=== PATIENT | female | born 1995 | race Caucasian/White ===

== ENCOUNTER 2020-11-14 22:55 | Emergency (ER) | payer BC ==
--- NOTE | 2020-11-14 23:30 | EDM.PDOC ---
ED HPI GENERAL MEDICAL PROBLEM - General Stated Complaint: AND BLEEDING Time Seen by Provider: 11/14/20 23:26 Source of Information: Reports: Patient History Limitations: Reports: No Limitations - History of Present Illness INITIAL COMMENTS - FREE TEXT/NARRATIVE: Complains of spotting vaginally. No cramping. Had intercourse earlier today. Using pads. She is about 13 weeks along,followed by Dr Stanton. ED ROS GENERAL - Review of Systems Review Of Systems: Comprehensive ROS is negative, except as noted in HPI. ED EXAM - Physical Exam Exam: See Below Exam Limited By: No Limitations General Appearance: Alert, WD/WN Throat/Mouth: Normal Inspection Head: Atraumatic Neck: Normal Inspection Neurological: Alert Psychiatric: Anxious Comments: heart tones detected,about 140 Course - Vital Signs Last Recorded V/S: Last Vital Signs Temp 97.5 F 11/14/20 23:44 Pulse 77 11/14/20 23:44 Resp 16 11/14/20 23:44 BP 128/75 11/14/20 23:44 Pulse Ox 100 11/14/20 23:44 Departure - Departure Time of Disposition: 19:29 Disposition: Home, Self-Care 01 Clinical Impression: Threatened miscarriage, Vaginal bleeding in patient after first trimester, Vaginal discharge - Discharge Information Instructions: Threatened Miscarriage, Vaginal Bleeding During , Second Trimester Referrals: Zita Stanton MD [Primary Care Provider] - Forms: ED Department Discharge Additional Instructions: follow up with your [employer]ELOPER as scheduled or sooner if continue to have bleeding. - Problem List & Annotations (1) Threatened SNOMED Code(s): 24889113 Code(s): O20.0 - THREATENED Status: Acute - Problem List Review Problem List Initiated/Reviewed/Updated: Yes - Assessment/Plan Plan: Observe.May need US,I advised follow up with PCP on Monday
== END 2020-11-14 23:50 | disposition home or self-care (01) ==
LOC: FB.ED 22:55
DX: O20.0 Threatened abortion (principal); Z3A.13 13 weeks gestation of pregnancy
CPT/HCPCS: 99282; 99283